=== PATIENT | female | born 1985 | race Two or more races ===

== ENCOUNTER 2022-09-03 15:38 | Emergency (ER) | payer OTHER ==
[~2022-09-03] VITALS: Ht 162.6 cm; Wt 63.5 kg
== END 2022-09-03 19:11 | disposition home or self-care (01) ==
LOC: ER 15:38
DX: S70.01XA Contusion of right hip, initial encounter (principal); S30.0XXA Contusion of lower back and pelvis, initial encounter; S20.223A Contusion of bilateral back wall of thorax, initial encounter; W18.39XA Other fall on same level, initial encounter; Y93.89 Activity, other specified; Y92.015 Private garage of single-family (private) house as the place of occurrence of the external cause; Y99.9 Unspecified external cause status; R51.9 Headache, unspecified